=== PATIENT | female | born 1990 | race American Indian/Alaskan Native ===

== ENCOUNTER 2017-01-30 00:44 | Emergency (ER) | payer BC ==
[2017-01-30 01:57] LABS: Basophils % (Auto) 0.3 % (0.0-1.8); Hematocrit 33.9 % (30.3-42.9); Mean Corpuscular HGB Conc 32 % (30-34); Mean Corpuscular Volume 77 fl (79-97); Platelet Count 257 K/mm3 (140-440); Red Blood Count 4.37 M/mm3 (3.65-5.03); Red Cell Distribution Width 15.1 % (13.2-15.2); White Blood Count 9.9 K/mm3 (4.5-11.0)
[2017-01-30 02:10] LABS: Mean Corpuscular Hemoglobin 25 pg (28-32)
[2017-01-30 02:11] LABS: INR 1.15 (0.87-1.13)
[2017-01-30 02:12] LABS: Partial Thromboplastin Time 29.7 Sec. (24.2-36.6)
[2017-01-30 02:15] LABS: Anion Gap 16 mmol/L; BUN/Creatinine Ratio 18.33; Blood Urea Nitrogen 11 mg/dL (7-17); Calcium 8.8 mg/dL (8.4-10.2); Carbon Dioxide 27 mmol/L (22-30); Chloride 100.2 mmol/L (98-107); Glucose 95 mg/dL (65-100); Potassium 3.6 mmol/L (3.6-5.0); Sodium 140 mmol/L (137-145)
--- NOTE | 2017-01-30 03:01 | Emergency Department Report ---
ED Chest Pain HPI - General Chief Complaint: Chest Pain Stated Complaint: CP Time Seen by Provider: 01/30/17 02:04 Source: patient Mode of arrival: Ambulatory Limitations: No Limitations - History of Present Illness MD Complaint: chest pain Onset/Timin -: Sudden, days(s) Onset: other (movement reaching deep breathing ) Pain Location: left chest Pain Radiation: none Severity: moderate Severity scale (0 -10): 4 Quality: sharp Consistency: intermittent Improves With: rest Worsens With: inspiration, palpation, movement re: denies: nausea, vomting, diaphoresis, dyspnea, sense of impending doom Other Symptoms: denies: cough, fever, syncope, rash, acid taste in mouth, leg swelling, palpitations, burping Treatments Prior to Arrival: none Aspirin use within the Past 7 Days: (0) No - Related Data On Oral Contraceptives: No Previous Rx's Medication Instructions Recorded Last Taken Type Naproxen [Naprosyn TAB] 500 mg PO BID PRN #60 tablet 01/30/17 Unknown Rx Allergies Allergy/AdvReac Type Severity Reaction Status Date / Time tu q Allergy Rash Uncoded 01/30/17 01:04 Heart Score - HEART Score History: Slightly suspicious EKG: Normal Age: < 45 Risk factors: 1-2 risk factors Troponin: < normal limit HEART Score: 1 ED Review of Systems ROS: Stated complaint: CP Other details as noted in HPI Constitutional: denies: chills, fever Eyes: denies: eye pain, eye discharge, vision change ENT: denies: ear pain, throat pain Respiratory: denies: cough, shortness of breath, wheezing Cardiovascular: chest pain. denies: palpitations, dyspnea on exertion, orthopnea, edema, syncope, paroxysmal nocturnal dyspnea Endocrine: no symptoms reported Gastrointestinal: denies: abdominal pain, nausea, diarrhea Genitourinary: denies: urgency, dysuria, discharge Musculoskeletal: myalgia, other (chestwall tenderness). denies: back pain, joint swelling, arthralgia Skin: denies: rash, lesions Neurological: denies: headache, weakness, paresthesias Psychiatric: denies: anxiety, depression Hematological/Lymphatic: denies: easy bleeding, easy bruising ED Past Medical Hx - Past Medical History Previous Medical History?: No - Surgical History Past Surgical History?: No - Social History Smoking Status: Current Every Day Smoker Substance Use Type: Alcohol - Medications Home Medications: Home Medications Medication Instructions Recorded Confirmed Last Taken Type Naproxen [Naprosyn TAB] 500 mg PO BID PRN #60 tablet 01/30/17 Unknown Rx ED Physical Exam - General Limitations: No Limitations General appearance: alert, in no apparent distress - Head Head exam: Present: atraumatic, normocephalic - Eye Eye exam: Present: normal appearance - ENT ENT exam: Present: mucous membranes moist - Neck Neck exam: Present: normal inspection - Respiratory Respiratory exam: Present: normal lung sounds bilaterally. Absent: respiratory distress - Cardiovascular Cardiovascular Exam: Present: regular rate, normal rhythm, normal heart sounds. Absent: rubs, gallop, clicks, JVD - GI/Abdominal GI/Abdominal exam: Present: soft, normal bowel sounds - Rectal Rectal exam: Present: deferred - Extremities Exam Extremities exam: Present: normal inspection - Back Exam Back exam: Present: normal inspection - Neurological Exam Neurological exam: Present: alert, oriented X3, CN II-XII intact, normal gait, reflexes normal. Absent: motor sensory deficit - Psychiatric Psychiatric exam: Present: normal affect, normal mood - Skin Skin exam: Present: warm, dry, intact, normal color. Absent: rash ED Course Vital Signs 01/30/17 00:49 Temperature 99 F Pulse Rate 95 H Respiratory 20 Rate Blood Pressure 149/103 [Right] O2 Sat by Pulse 100 Oximetry MAHESH score - Mahesh Score Age > 65: (0) No Aspirin use within the Past 7 Days: (0) No 3 or more CAD Risk Factors: (0) No 2 or more Angina events in past 24 hrs: (0) No Known CAD with more than 50% Stenosis: (0) No Elevated Cardiac Markers: (0) No ST Deviation Greater than 0.5mm: (0) No MAHESH Score: 0 ED Medical Decision Making - Lab Data Result diagrams: 01/30/17 01:18 01/30/17 01:18 - EKG Data -: EKG Interpreted by Me EKG shows normal: sinus rhythm Rate: normal - Medical Decision Making pt is 26 y/o aaf with hx obesity 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 note hypertenive episode at this time pt deneis headache no dizziness no lightheadedness no sob, pt is a/o x 3 ambulatory gait steady with nad a this time. Critical care attestation.: If time is entered above; I have spent that time in minutes in the direct care of this critically ill patient, excluding procedure time. ED Disposition Clinical Impression: Chest wall pain Disposition: TO HOME OR SELFCARE Is pt being admited?: No Does the pt Need Aspirin: No Condition: Stable Prescriptions: Naproxen [Naprosyn TAB] 500 mg PO BID PRN #60 tablet PRN Reason: Pain Referrals: PRIMARY CARE, [Primary Care Provider] - 3-5 Days Time of Disposition: 03:17
[2017-01-30 03:05] LABS: Bilirubin,Urine NEG (Negative); Blood,Urine NEG (Negative); Ketones,Urine NEG (Negative); Leukocyte Esterase,Urine TR (Negative); Mucus,Urine 1+ /HPF; Nitrite,Urine NEG (Negative); Protein,Urine <15 mg/dL mg/dL (Negative); Urobilinogen,Urine < 2.0 mg/dL (<2.0)
[2017-01-30 03:59] VITALS: BP 130/88
== END 2017-01-30 03:30 | disposition home or self-care (01) ==
LOC: ED 00:44
DX: R07.89 Other chest pain (principal); F17.210 Nicotine dependence, cigarettes, uncomplicated; Z88.8 Allergy status to other drugs, medicaments and biological substances
CPT/HCPCS: 36415; 80048; 81001; 84484; 84703; 85025; 85610; 85730; 93005; 93010; 99284

== ENCOUNTER 2017-12-09 13:56 | Emergency (ER) | payer BC, MEDICAID ==
[2017-12-09 14:06] VITALS: BP 125/89
== END 2017-12-09 16:21 ==
LOC: ED 13:56
DX: L02.419 Cutaneous abscess of limb, unspecified (principal); Z53.21 Procedure and treatment not carried out due to patient leaving prior to being seen by health care provider

== ENCOUNTER 2018-01-07 08:42 | Inpatient (IN) | payer MEDICAID ==
[2018-01-07] MEDS ORDERED: PEPCID IV ONE (09:19)
[2018-01-07] MEDS ORDERED: REGLAN IV ONE (09:19)
[2018-01-07] MEDS ORDERED: BICITRA PO ONE (09:19)
--- NOTE | 2018-01-07 09:25 | History and Physical Report ---
History of Present Illness Date of examination: 01/07/18 Date of admission: 01/07/18 08:42 History of present illness: Past History : 4 Term Births: 2 Living Children: 2 Para: 2 Prev : 2 Ectopics: 1 # 1 Delivery type: # 2 Delivery type: Past Medical History: Reviewed history from 12/26/2016 and no changes required: HIDRADENITIS SUPPURATIVA Past Surgical History: Reviewed history from 12/26/2016 and no changes required: x2 Past Medical History Abnormal PAP: negative ARMANDO Exposure: negative Infertility: negative Uterine Anomaly: negative Uterine Surgery (not C/S): negative Other Gynecologic Problems: negative Medical History Comments: obesity Family Hx: HTN Social Hx: Patient is single Smoking History: Patient currently smokes every day. Patient has been counseled to quit. Infection History Personal hx. of genital herpes: yes Varicella/Chicken Pox Status: Previous Disease Genetic History Congenital Heart Defect: Mom: no Dad: no Kishore Disease: Mom: no Dad: no Thalassemia Mom: no Dad: no Neural Tube Defect Mom: no Dad: no Down's Syndrome Mom: no Dad: no Hilario-Sachs Mom: no Dad: no Sickle Cell Disease/Trait Mom: no Dad: no Hemophilia Mom: no Dad: no Muscular Dystrophy Mom: no Dad: no Cystic Fibrosis Mom: no Dad: no Marleen Chorea Mom: no Dad: no Mental Retardation Mom: no Dad: no Fragile X Mom: no Dad: no Other Genetic/Chromosomal Disorder Mom: no Dad: no Child w/other defect Mom: no Dad: no Enviromental Exposures Xray Exposure: no Medication, drug, or alcohol use since LMP: no Chemical/Other Exposure: no Exposure to Cat Liter: no Hx of Parvovirus (Fifth Disease): no Occupational Exposure to Children: none Current Allergies (reviewed today): Q-TUSSIN DM (DEXTROMETHORPHAN-GUAIFENESIN SYRP) (Critical) Past History - Obstetrical History Expected Date of Delivery: 01/13/18 Actual Gestation: 39 Week(s) 1 Day(s) Medications and Allergies Allergies Allergy/AdvReac Type Severity Reaction Status Date / Time tus q Allergy Rash Uncoded 01/07/18 09:01 Home Medications Medication Instructions Recorded Confirmed Last Taken Type No Known Home Medications [No 01/07/18 01/07/18 Unknown History Reported Home Medications] Active Meds: Active Medications Citric Acid/Sodium Citrate (Bicitra) 30 ml PO ONCE ONE Stop: 01/07/18 09:20 Famotidine (Pepcid) 20 mg IV ONCE ONE Stop: 01/07/18 09:20 Cefazolin Sodium (Ancef/Sterile Water 2 Gm/20 Ml) 2 gm in 20 mls @ 80 mls/hr IV PREOP NR; Protocol Lactated Ringer's (Lactated Ringers) 1,000 mls @ 2,250 mls/hr IV PREOP ISABELA Stop: 01/08/18 10:27 Oxytocin/Sodium Chloride (Pitocin/Ns 20 Unit/1000ml Drip) 20 units in 1,000 mls @ 0 mls/hr IV TITR ISABELA Metoclopramide HCl (Reglan) 10 mg IV ONCE ONE Stop: 01/07/18 09:20 - Physical Exam Breasts: Positive: deferred Lungs: Positive: Normal air movement Results Result Diagrams: 01/07/18 09:20 All other labs normal. Assessment and Plan - Patient Problems (1) 39 weeks gestation of Current Visit: Yes Status: Acute (2) Maternal care due to low transverse uterine scar from previous delivery Current Visit: Yes Status: Acute Plan to address problem: Options reviewed, questions enocuarged and answered, she voiced understanding and desires to proceed with C/S w/ sterilization (3) BMI 45.0-49.9, adult Current Visit: Yes Status: Acute (4) Sterilization Current Visit: Yes Status: Acute Plan to address problem: Risks of regret emphasized. Permanent and irreversible condition explained to patient. Pt verbalized understanding. Consent reviewed and signed. Pre- operative instructions sheets given. The risks and alternatives to this surgery were reviewed with the patient. Infection precautions reviewed, pt to call for any signs or symptoms of infection. Patient given ample opportunity to have all her questions answered before signing informed consent. Patient informed of possible bleeding. 1%failure rate emphasized (5) HSV infection Current Visit: Yes Status: Acute
[2018-01-07] MEDS ORDERED: LACTATED RINGERS 2,000 ML ONE (09:31)
[2018-01-07 09:48] LABS: Hematocrit 26.3 % (30.3-42.9); Hemoglobin 8.9 gm/dl (10.1-14.3); Mean Corpuscular HGB Conc 34 % (30-34); Mean Corpuscular Volume 71 fl (79-97); Platelet Count 162 K/mm3 (140-440); Red Cell Distribution Width 16.5 % (13.2-15.2)
[2018-01-07 09:54] LABS: Mean Corpuscular Hemoglobin 24 pg (28-32)
[2018-01-07] MEDS: LACTATED RINGERS 1,000 ML IV SCH ×2 (10:00→11:00)
[2018-01-07] MEDS ORDERED: PITOCin/NS 20 UNIT/1000ML DRIP 20 UNITS/1,000 ML BAG IV SCH ×2 (10:00→16:56)
[2018-01-07] MEDS ORDERED: ANCEF/STERILE WATER 2 GM/20 ML 2 GM/20 ML SYRINGE IV NR (10:00)
--- NOTE | 2018-01-07 10:57 | Anesthesia Day of Surgery ---
Anesthesia Day of Surgery - Day of Surgery Patient Examined: Yes Patient H&P Reviewed: Yes Patient is NPO: Yes
--- NOTE | 2018-01-07 10:57 | Anesthesia Consultation ---
Anesthesia Consult and Med Hx Date of service: 01/07/18 - Airway Anesthetic Teeth Evaluation: Good ROM Head & Neck: Adequate Mental/Hyoid Distance: Adequate Mallampati Class: Class III Intubation Access Assessment: Possibly Difficult - Pre-Operative Health Status ASA Pre-Surgery Classification: ASA3 Proposed Anesthetic Plan: Epidural, Spinal - Pulmonary Hx Smoking: Yes (quit 8 month ago) - Other Systems Hx Obesity: Yes (BMI 45.2)
[2018-01-07] MEDS ORDERED: PHENERGAN PR PRN (10:58)
[2018-01-07] MEDS ORDERED: PHENERGAN PO PRN (10:58)
[2018-01-07] MEDS ORDERED: BENADRYL IV PRN (10:58)
[2018-01-07] MEDS ORDERED: NARCAN 0.4 MG/1 ML IV PRN (10:58)
[2018-01-07] MEDS ORDERED: DILAUDID IV PRN (10:58)
[2018-01-07] MEDS ORDERED: ZOFRAN IV PRN (10:58)
[2018-01-07] MEDS ORDERED: SODIUM CHLORIDE FLUSH SYRINGE 10 ML IV NR ×2 (11:00→16:56)
[2018-01-07] MEDS ORDERED: NACL 0.9% IR ONE (12:40)
[2018-01-07] MEDS ORDERED: WATER FOR IRRIG STERILE IR ONE (12:40)
[2018-01-07] MEDS ORDERED: NEO SYNEPHRINE/NS Syringe(OR USE) IV ONE ×4 (13:00→13:08)
[2018-01-07] MEDS ORDERED: SUBLIMAZE ONE ×2 (13:13)
[2018-01-07] MEDS ORDERED: XYLOCAINE CARDIAC IV ONE ×2 (13:15)
[2018-01-07] MEDS ORDERED: XYLOCAINE MPF 2% ONE ×2 (13:48)
--- NOTE | 2018-01-07 14:07 | Operative Report ---
Operative Report Operative Report: Date: 01/07/2018 Preoperative diagnosis: 1. Intrauterine at 39 weeks 2. Maternal care due to low transverse uterine scar from previous delivery 3. Desires sterilization 4. Body mass index 45 Postoperative diagnosis: 1. Intrauterine at 39 weeks 2. Maternal care due to low transverse uterine scar from previous delivery 3. Desires sterilization 4. Body mass index 45 5. Pelvic adhesions Procedure: 1. Repeat low transverse delivery 2. Bilateral tubal ligation modified [place] 3. Lysis of pelvic adhesions Surgeon: Claudia Muniz MD Foxpro Developer: Jessica Wu Anesthesia: Combined spinal epidural Anesthesiologist: Dr. Alex Estimated blood loss: 1000 mL Urine out: 50 mL Findings: Live born female infant. Weight 7 pounds 12 oz. Apgars 8 at 1 minute and 9 at 5 minutes. Enlarged with multiple fibroids uterus, grossly normal right fallopian tubes, right ovary not visualized. Left distal fallopian tube adhered to the anterior lower uterine segment, grossly normal left ovary. Procedure: After risk, benefits, complications, consequences and alternatives for the procedure were discussed with patient and consents were reviewed and signed, she was taken to the OR where combined spinal epidural anesthesia was placed. She was then placed in the left lateral tilt position, and prepped and draped in the usual sterile fashion. Timeout was performed, and an appropriate level of anesthesia was noted, a Pfannenstiel incision was made and extended to the fascia which was incised and extended in the lateral directions. The overlying fascia was sharply dissected away from the underlying rectus muscles in the superior and inferior directions. The midline was entered with blunt and sharp dissection. The vesicouterine fold was incised and with blunt dissection the bladder flap was created. A transverse incision was made in the lower uterine segment and extended in superiolateral direction with finger fractionation. Copious clear fluid was noted. The infant was delivered from cephalic position with initial vacuum extraction attempt. With extension of the incision and malar incision the was delivered. Mouth and nose were bulb suctioned. Spontaneous cry and excellent tone were noted. Cord was doubly clamped and cut. The infant was given to /resuscitation team present. The placenta was manually extracted. Due to the uterine size was unable to be manually exteriorized. However the cavity was cleaned of placental tissue and products of conception and clots. The incision was then reapproximated using 0 Vicryl running locking stitch. Further hemostasis was obtained with 0 Vicryl in a running nonlocking stitch. Once confirmation was obtained from the patient proceed with sterilization, the right fallopian tube was grasped and elevated and a segment of the tube was lifted into a loop and doubly ligated with 0 Vicryl and excised.. Once hemostasis is noted the same procedure was performed on the left tube. Surgicel was applied to the adnexa to ensure hemostasis. Each segment of fallopian tube was sent to pathology in separate containers. Once hemostasis was noted, the pelvis was irrigated with warm normal saline. Attention was turned to the adnexa where hemostasis was noted. Surgicel was applied to the uterine incision for further hemostasis. Interceed was then placed to prevent adhesions. Then attention was turned to the rectus muscles. Once hemostasis was noted, the fascia was reapproximated using 0 Vicryl and some running stitch. Once hemostasis was noted skin incision was reapproximated using 4-0 Vicryl on a Tate needle in a subcuticular manner. Counts were correct 3. Patient tolerated procedure well state recovery room in stable condition.
[2018-01-07] MEDS ORDERED: TORADOL ONE (15:53)
[2018-01-07] MEDS: TORADOL IV PRN (15:56)
[2018-01-07] MEDS ORDERED: MORPHINE IV PRN (16:56)
[2018-01-07] MEDS ORDERED: TUCKS PAD TP PRN (16:56)
[2018-01-07] MEDS ORDERED: DULCOLAX PR PRN (16:56)
[2018-01-07] MEDS ORDERED: CYTOTEC PR PRN (16:56)
[2018-01-07] MEDS ORDERED: METHERGINE IM PRN (16:56)
[2018-01-07] MEDS ORDERED: D5LR 1,000 ML IV SCH (16:56)
[2018-01-07] MEDS ORDERED: ANCEF/NS 1 GM/50 ML 1 GM/50 ML BAG IV SCH (16:56)
[2018-01-07] MEDS ORDERED: TYLENOL PO PRN (16:56)
[2018-01-07] MEDS ORDERED: TYLENOL PR PRN (16:56)
[2018-01-07] MEDS ORDERED: HEMABATE IM PRN (16:56)
[2018-01-07] MEDS ORDERED: LANSINOH TP PRN (16:56)
[2018-01-07] MEDS: PERCOCET 5/325 PO PRN (21:19)
[2018-01-07] MEDS: ceFAZolin 1 GM in NACL 0.9% 20 ML IV SCH ×2 (21:22→22:56)
[2018-01-08 00:49] LABS: Hemoglobin 8.5 gm/dl (10.1-14.3)
[2018-01-08] MEDS: MOTRIN PO PRN (02:42)
[2018-01-08] MEDS ORDERED: BOOSTRIX IM ONE (06:00)
[2018-01-08] MEDS ORDERED: ceFAZolin 1 GM in NACL 0.9% 20 ML IV SCH (06:00)
--- NOTE | 2018-01-08 08:58 | Progress Note ---
Assessment and Plan A: postop day #1 s/p repeat c/s w/ tubal. Lochia scant, VSSAF, postop H&H 8.5/ 26.0 (existing anemia, pre-op H&H 8.9/26.3), no s/s anemia, ambulating without difficulty. P: continue postop pathway, remove dressing, increase activity and diet as tolerated, ISS, encourage continued . - Patient Problems (1) delivery delivered Current Visit: Yes Status: Acute (2) Anemia Current Visit: Yes Status: Acute Qualifiers: Anemia type: iron deficiency Subjective - Subjective Date of service: 01/08/18 Principal diagnosis: postop day #1 s/p repeat c/s Patient reports: appetite normal, voiding normally, pain well controlled, ambulating normally, no dizzy ambulation, no flatus, no bowel movement, no nauseated : doing well, nursing well Objective - Vital Signs Latest vital signs: Vital Signs Temp Pulse Resp BP BP Pulse Ox 01/08/18 04:11 98.4 F 102 H 20 128/88 99 01/08/18 02:42 20 01/08/18 01:06 98.3 F 89 20 121/82 100 01/07/18 21:19 20 01/07/18 20:52 98.7 F 97 H 18 120/78 99 01/07/18 17:07 20 01/07/18 16:26 20 01/07/18 15:56 18 01/07/18 15:50 98.2 F 88 20 119/76 100 01/07/18 15:10 97.7 F 88 16 107/67 100 01/07/18 15:05 85 14 102/64 100 01/07/18 15:00 85 16 100/64 100 01/07/18 14:55 83 15 108/65 100 01/07/18 14:50 85 15 104/68 100 01/07/18 14:45 83 14 104/63 100 01/07/18 14:40 84 16 96/61 100 01/07/18 14:35 85 16 94/59 01/07/18 14:06 97.7 F 94 H 16 98/47 100 01/07/18 10:07 93 H 99 01/07/18 10:02 92 H 98 01/07/18 09:57 94 H 98 01/07/18 09:52 93 H 99 01/07/18 09:47 89 98 01/07/18 09:42 87 99 Intake and Output 01/07/18 01/08/18 01/08/18 23:59 07:59 15:59 Intake Total 240 600 Output Total 200 2000 Balance 40 -1400 Intake: Oral 240 600 Output: Urine 200 2000 Indwelling Catheter 200 2000 Other: Total, Intake Amount 240 360 Total, Output Amount 200 1200 Voiding Method Indwelling Catheter - Exam Breasts: Present: normal, Cardiovascular: Present: Regular rate Lungs: Present: Clear to auscultation, Normal air movement Abdomen: Present: normal appearance, soft Vulva: both: normal Uterus: Present: normal, firm, fundal height at umbilicus Extremities: Present: normal Incision: Present: normal, dry, dressed (rn to remove dressing today) - Labs Labs: Abnormal lab results 01/07/18 01/08/18 Range/Units 09:20 00:13 Hgb 8.9 L 8.5 L (10.1-14.3) gm/dl Hct 26.3 L 26.0 L (30.3-42.9) % MCV 71 L (79-97) fl MCH 24 L (28-32) pg RDW 16.5 H (13.2-15.2) %
[2018-01-08] MEDS: PERCOCET 5/325 PO PRN ×2 (09:59→17:20)
[2018-01-08] MEDS: TORADOL IV PRN ×2 (11:23→17:35)
[2018-01-08] MEDS: MILK OF MAGNESIA PO PRN (17:00)
[2018-01-09] MEDS: PERCOCET 5/325 PO PRN ×3 (00:40→18:20)
[2018-01-09] MEDS: MOTRIN PO PRN ×3 (00:41→18:19)
[2018-01-09] MEDS: MILK OF MAGNESIA PO PRN (07:31)
--- NOTE | 2018-01-09 11:22 | Progress Note ---
Assessment and Plan - Patient Problems (1) delivery delivered Onset Date: ~01/07/18 Current Visit: Yes Status: Acute Plan to address problem: Pt alert sitting bed feeding baby. VSS FF below umb Lochia scant Pt asymptomatic anemia, H&H 04/11. Doing well with exception of gas pain. P: continue pathway Advance diet and activity as tolerated. Encouraged shower and ambulation. d/c tomorrow if stable Subjective - Subjective Date of service: 01/09/18 (pt request d/c tomorrow) Principal diagnosis: postop day #2 s/p repeat c/s Patient reports: appetite normal, voiding normally, pain well controlled, flatus , ambulating normally : doing well Objective - Vital Signs Latest vital signs: Vital Signs Temp Pulse Resp BP BP Pulse Ox 01/09/18 07:59 98.0 F 95 H 20 115/73 99 01/09/18 00:21 97.6 F 100 H 18 121/85 100 01/08/18 17:30 98.2 F 92 H 20 116/80 01/08/18 13:00 97.8 F 91 H 20 103/58 Intake and Output 01/08/18 01/09/18 01/09/18 22:59 06:59 14:59 Intake Total 480 480 Output Total 400 Balance 80 480 Intake: Oral 480 480 Output: Urine 400 Void 400 Other: Total, Intake Amount 240 240 Total, Output Amount 400 # Voids Void 3 1 - Exam Breasts: Present: normal Cardiovascular: Present: Regular rate Lungs: Present: Normal air movement Abdomen: Present: normal appearance, soft, normal bowel sounds Uterus: Present: normal, firm, fundal height below umbilicus Extremities: Present: normal Deep Tendon Reflex Grade: Normal +2 Incision: Present: normal, dry, intact
[2018-01-10] MEDS: MILK OF MAGNESIA PO PRN (00:47)
[2018-01-10] MEDS: MOTRIN PO PRN (00:47)
[2018-01-10] MEDS: PERCOCET 5/325 PO PRN (00:48)
--- NOTE | 2018-01-10 05:57 | Discharge Summary ---
Providers - Providers Date of Admission: 01/07/18 08:42 Date of discharge: 01/10/18 (pt desires d/c ) Attending physician: ENRIQUE FRAZIER 01/07/18 16:56 Consult to Piece Dyer [CONS] Routine Reason For Exam: Primary care physician: ENRIQUE FRAZIER Hospitalization Reason for admission: section Delivery: Procedure: bilateral tubal ligation, repeat low transverse Episiotomy: none Laceration: none Incision: normal Other procedures: none complications: none Discharge diagnosis: IUP at term delivered [place] baby: female Hospital course: uncomplicated vaginal delivery Pt w/o complaint VSS FF below umb Lochia scant Incision D&I, wound care discussed. Asymptomatic anemia. Doing well s/p c/s P: d/c today with instructions RTO 1 week postop care. RX provided Condition at discharge: Good Disposition: DC-01 TO HOME OR SELFCARE - Discharge Diagnoses (1) delivery delivered Status: Acute Comment: RTO 1 week postop care Plan - Discharge Medications Prescriptions: Docusate Sodium [Colace] 100 mg PO BID PRN #30 capsule PRN Reason: Constip Unreliev By Mom/Or Npo Ferrous Sulfate [Feosol 325 MG tab] 325 mg PO BID #90 tablet Ibuprofen [Motrin 800 MG tab] 800 mg PO TID PRN #30 tablet PRN Reason: Pain oxyCODONE /ACETAMINOPHEN [Percocet 5/325 mg] 1 - 2 tab PO Q4HR PRN #30 tablet PRN Reason: Pain - Provider Discharge Summary Activity: routine, no sex for 6 weeks, no heavy lifting 4 weeks, no strenuous exercise Diet: routine Instructions: routine Additional instructions: [] Smoking cessation referral if applicable(refer to patient education folder for contact #) [] Refer to [facility] Booklet Call your doctor immediately for: * Fever > 100.5 * Heavy vaginal bleeding ( >1 pad per hour) * Severe persistent headache * Shortness of breath * Reddened, hot, painful area to leg or breast * Drainage or odor from incision. * Keep incision clean and dry at all times and follow doctor's instructions regarding bathing/showering - Follow up plan Follow up: ENRIQUE FRAZIER MD [Primary Care Provider] - 01/13/18 (Congratulations! Please keep your postoperative visit as scheduled. If you have any questions or concerns please call [phone]. Take medications as prescribed. )
[2018-01-10 09:36] VITALS: BP 122/86
== END 2018-01-10 13:45 | disposition home or self-care (01) | DRG 765 ==
LOC: APU 08:42 → OB 15:48
PROVIDERS: ADMIT Obstetrics & Gynecology; ATTEND Obstetrics & Gynecology
PROC: 10D00Z1 Extraction of Products of Conception, Low, Open Approach (ICD-10-PCS; principal; 2018-01-07)
PROC: 0UT70ZZ Resection of Bilateral Fallopian Tubes, Open Approach (ICD-10-PCS; 2018-01-07)
PROC: 3E0234Z Introduction of Serum, Toxoid and Vaccine into Muscle, Percutaneous Approach (ICD-10-PCS; 2018-01-08)
DX: O34.211 Maternal care for low transverse scar from previous cesarean delivery (principal); Z68.42 Body mass index [BMI] 45.0-49.9, adult; O98.52 Other viral diseases complicating childbirth; O99.214 Obesity complicating childbirth; O99.334 Smoking (tobacco) complicating childbirth; F17.200 Nicotine dependence, unspecified, uncomplicated; O99.02 Anemia complicating childbirth; D64.9 Anemia, unspecified; O99.62 Diseases of the digestive system complicating childbirth; K66.0 Peritoneal adhesions (postprocedural) (postinfection); E66.9 Obesity, unspecified; B00.9 Herpesviral infection, unspecified; Z3A.39 39 weeks gestation of pregnancy; Z37.0 Single live birth; Z23 Encounter for immunization; Z82.49 Family history of ischemic heart disease and other diseases of the circulatory system; Z71.6 Tobacco abuse counseling; Z88.8 Allergy status to other drugs, medicaments and biological substances; Z30.2 Encounter for sterilization; Z79.899 Other long term (current) drug therapy
CPT/HCPCS: 36415; 85014; 85018; 85027; 86592; 86850; 86900; 86901; 88302; 99211; C1765; G0463; J0690; J1885; J2001; J2270; J2370; J2590; J2765; J3010; J7120; J7121

== ENCOUNTER 2018-05-16 08:18 | Emergency (ER) | payer MEDICAID ==
[2018-05-16 09:18] VITALS: BP 131/87
--- NOTE | 2018-05-16 09:47 | Emergency Department Report ---
ED Rash HPI - HPI Chief Complaint: Skin/Abscess/Foreign Body Stated Complaint: LEFT BREAST PAIN Time Seen by Provider: 05/16/18 09:42 Duration: 3 Days Location: Chest Suspected Cause: Unknown Rash Symptoms: No Itching, No Facial Swelling, No Tongue/Oral Swelling, No Breathing Difficulties, No Choking Sensation, No Wheezing/Dyspnea, No Peeling, No Blistering, No Fever, No Lightheaded, No Malaise, No Myalgias Severity: mild ED Review of Systems ROS: Stated complaint: LEFT BREAST PAIN Other details as noted in HPI Comment: All other systems reviewed and negative Constitutional: no symptoms reported. denies: see HPI, chills, fever Eyes: denies: eye pain ENT: denies: throat pain Respiratory: no symptoms reported. denies: cough Cardiovascular: denies: chest pain Endocrine: denies: excessive sweating, flushing Gastrointestinal: denies: nausea Genitourinary: denies: dysuria Musculoskeletal: denies: back pain Skin: lesions, other (under le breast). denies: rash ED Past Medical Hx - Past Medical History Hx Hypertension: Yes Hx Congestive Heart Failure: No Hx Diabetes: No Hx Deep Vein Thrombosis: No Hx Renal Disease: No Hx Sickle Cell Disease: No Hx Seizures: No Hx Asthma: No Hx COPD: No Hx HIV: No Additional medical history: Family hx of hydrodenitis, boil - Surgical History Past Surgical History?: Yes Additional Surgical History: x2 - Social History Smoking Status: Never Smoker Substance Use Type: None - Medications Home Medications: Home Medications Medication Instructions Recorded Confirmed Last Taken Type cephALEXin [Keflex] 500 mg PO Q12HR #20 cap 05/16/18 Unknown Rx Rash Exam - Exam General: Vital signs noted. No distress. Alert and acting appropriately. HEENT: No Periorbital Edema, No Conjuctival Injection, No Chemosis, No Perioral Edema, No Tongue Edema, No Uvular Edema, No Compromised Airway, No Drooling Lungs: Yes Good Air Exchange, No Wheezes, No Ronchi, No Stridor, No Cough, No Labored Respirations, No Retractions, No Use of Accessory Muscles, No Other Abnormal Lung Sounds Heart: Yes Regular, No Murmur Skin: Yes Erythema, Yes Other (under left breast in skin fold is firm red area. no area for i/d - not soft. red. no edema. ), No Urticarial Rash, No Maculopapular Rash, No Morbilliform rash, No Bulla(e), No Excoriations, No Weeping, No Tenderness, No Edema, No Encrustations Other: Positive: Abdomen Normal, Neurologic Normal, Musculoskeletal Normal ED Course Vital Signs 05/16/18 09:15 Temperature 98.9 F Pulse Rate 84 Respiratory 16 Rate Blood Pressure 131/87 O2 Sat by Pulse 99 Oximetry - Reevaluation(s) Reevaluation #1: 05/16/18 09:49 in left breast skin fold pt thought she was bit by something. then she said she thought it was a boil. did not develop into a head more cellulitic appearing firm; no flat. for i/d no fever non toxic ambulatory otherwise no medical problems. taking po educated on care of area will see Dr Lozano this week to be sure she is responding to medication. ED Medical Decision Making - Medical Decision Making no flat. for i/d cellulitic area under l breast in skin fold non toxic non ill appearing otherwise healthy - Differential Diagnosis abscess v cellulitis Critical care attestation.: If time is entered above; I have spent that time in minutes in the direct care of this critically ill patient, excluding procedure time. ED Disposition Clinical Impression: Cellulitis Disposition: DC-01 TO HOME OR SELFCARE Is pt being admited?: No Does the pt Need Aspirin: No Condition: Stable Instructions: Cellulitis (ED) Additional Instructions: soak in tub with epsom salts three times per day for 20 minutes med as ordered follow up pcp this week to be sure responding to meds do not pick at the area motrin or tylenol for pain Referrals: PRIMARY CARE, [Primary Care Provider] - 3-5 Days Time of Disposition: 09:44
== END 2018-05-16 10:04 | disposition home or self-care (01) ==
LOC: ED 08:18
DX: L03.313 Cellulitis of chest wall (principal); I10 Essential (primary) hypertension; Z91.09 Other allergy status, other than to drugs and biological substances
CPT/HCPCS: 93005; 93010; 99282

== ENCOUNTER 2018-05-28 20:24 | Emergency (ER) | payer MEDICAID ==
[2018-05-28 21:36] VITALS: BP 129/83
== END 2018-05-29 00:40 | disposition left against medical advice (07) ==
LOC: ED 20:24
DX: N64.4 Mastodynia (principal); Z53.21 Procedure and treatment not carried out due to patient leaving prior to being seen by health care provider

== ENCOUNTER 2018-06-07 15:30 | Outpatient (CLI) | payer OTHER | END 2018-06-07 15:31 | disposition home or self-care (01) | LOC: LABHHL 15:30 | PROVIDERS: ATTEND Surgery | DX: N61.0 Mastitis without abscess (principal); I10 Essential (primary) hypertension; E66.9 Obesity, unspecified; Z87.891 Personal history of nicotine dependence | CPT/HCPCS: 87075; 87116 ==